=== PATIENT | male | born 1975 | race Caucasian/White ===

== ENCOUNTER 2017-10-27 12:54 | Emergency (ER) | payer MEDICARE, MEDICAID ==
[~2017-10-27] VITALS: Ht 180.3 cm; Wt 74.8 kg
[~2017-10-27 12:54] MED LIST: ALPR1T PO; NF-ESOM40C PO; OXYC-309 PO
--- OUTSIDE RECORDS SUMMARY | 2017-10-27 13:00 | XMS REPORT | Continuity of Care Document ---
Author Author [facility] Organization [facility] Address Unknown Phone Unavailable Allergies There is no data. Medications There is no data. Problems There is no data. Procedures There is no data. Results There is no data. Encounters ACCT No. Visit Date/Time Discharge Status Pt. Type Provider Facility Loc./Unit Complaint [id number] 09/01/2013 11:42:00 09/01/2013 23:59:59 CLS Outpatient
--- NOTE | 2017-10-27 13:51 | ED General ---
General Chief Complaint: Cough/Cold/Flu Symptoms Stated Complaint: ANDERS,CONGESTION,COUGH Nursing Triage Note: c/o intermittant headache/cough/chills/night sweats/earache x 2-3 weeks but has worsened last 3-4 days. Nursing Sepsis Screen: No Definite Risk Source of Information: Patient Exam Limitations: No Limitations History of Present Illness Date Seen by Provider: Oct 27, 2017 Time Seen by Provider: 13:22 Initial Comments This 42-year-old gentleman presents to emergency room with complaints of congestion, sore throat, joint aches, headaches, night sweats, and occasional productive cough. He has been having trouble with the congestion for 3 or 4 weeks. The congestion has been worse and the other symptoms have developed over the last for 5 days. He tried taking some Advil Cold and Sinus but that upset his stomach. He has been afebrile. Headache and sore throat have been improving. Allergies and Home Medications Allergies Coded Allergies: metoclopramide HCl (Unverified Allergy, 12/30/11) Uncoded Allergies: TYLELNOL WITH CODIENE (Allergy, 12/30/11) Home Medications Alprazolam 1 Mg Tablet, 1 TAB PO BID, (Reported) Amoxicillin 500 Mg Tablet, 1,000 MG PO TID Prescribed by: DANIEL HOLBROOK on 10/27/17 1414 Esomeprazole Mag Trihydrate 40 Mg Capsule.dr, 1 CAP PO DAILY, (Reported) Fluticasone Propionate 9.9 Ml [place].susp, 2 SPRAY NSEACH DAILY Prescribed by: DANIEL HOLBROOK on 10/27/17 1414 Oxycodone Hcl/Acetaminophen 1 Each Tablet, 1 EACH PO Q4H PRN, (Reported) Patient Home Medication List Home Medication List Reviewed: Yes Constitutional: see HPI, chills EENTM: see HPI Respiratory: see HPI Cardiovascular: no symptoms reported Gastrointestinal: see HPI Genitourinary: no symptoms reported Musculoskeletal: see HPI Skin: no symptoms reported Psychiatric/Neurological: See HPI Hematologic/Lymphatic: No Symptoms Reported Past Ojekfjl-Zflmmj-Wjveoy Hx Patient Social History Alcohol Use: Denies Use Recreational Drug Use: No Smoking Status: Former Smoker Recent Foreign Travel: No Contact w/Someone Who Travel: No Recent Infectious Disease Expo: No Surgeries History of Surgeries: Yes (dental, leg fracture) Surgeries: Appendectomy, Orthopedic Respiratory History of Respiratory Disorde: No Cardiovascular History of Cardiac Disorders: No Neurological History of Neurological Disord: Yes (meningitis in childhood) Genitourinary History of Genitourinary Disor: No Gastrointestinal History of Gastrointestinal Di: Yes Gastrointestinal Disorders: Gastroesophageal Reflux Musculoskeletal History of Musculoskeletal Dis: Yes (back) Musculoskeletal Disorders: Chronic Back Pain Endocrine History of Endocrine Disorders: No HEENT History of HEENT Disorders: No Cancer History of Cancer: No Psychosocial History of Psychiatric Problem: No Integumentary History of Skin or Integumenta: No Blood Transfusions History of Blood Disorders: No Physical Exam Vital Signs Vital Signs - First Documented 10/27/17 10/27/17 13:39 14:44 Temp 99.4 Pulse 78 Resp 16 B/P (MAP) 130/94 (106) Pulse Ox 99 O2 Delivery Room Air Capillary Refill : Less Than 3 Seconds General Appearance: No Apparent Distress, WD/WN HEENT: PERRL/EOMI, TMs Normal, Normal ENT Inspection, Other (posterior pharynx is hypervascular and mildly erythematous) Neck: Normal Inspection, Supple Respiratory: Lungs Clear, Normal Breath Sounds, No Accessory Muscle Use, No Respiratory Distress Cardiovascular: Regular Rate, Rhythm, No Edema, No Murmur Extremity: Normal Inspection Neurologic/Psychiatric: Alert, Oriented x3, No Motor/Sensory Deficits, Normal Mood/Affect, learning disabled teacher II-XII Norm as Tested Skin: Normal Color, Warm/Dry Progress/Results/Core Measures Suspected Sepsis Recent Fever Within 48 Hours: No Infection Criteria Present: Suspected New Infection New/Unexplained Altered Menta: No Sepsis Screen: No Definite Risk Sepsis Diagnosis: SIRS Temperature:99.4 Pulse: 78 Respiratory Rate: 16 Blood Pressure 130 /94 Mean: 106 Results/Orders Vital Signs/I&O Capillary Refill : Less Than 3 Seconds Blood Pressure Mean: 106 Progress Note : Progress Note Since he has had some sinus symptoms for more than 2 weeks with exacerbation of symptoms over the past few days, treatment for sinusitis was offered. Patient was given a printed prescription for amoxicillin. Departure Impression Impression: Primary Impression: Acute sinusitis Qualified Codes: J01.90 - Acute sinusitis, unspecified Disposition: 01 HOME, SELF-CARE Condition: Stable Departure-Patient Inst. Decision time for Depature: 14:05 Referrals: HARDEEP CRAIG MD (PCP/Family) Primary Care Physician Patient Instructions: Sinusitis in Adults Add. Discharge Instructions: If you elect to start antibiotics, please finish the entire 10 day course. Combined antibiotic use with use of Flonase (or generic form) 2 sprays in each side daily for at least 2 weeks. Return to care if symptoms worsen. All discharge instructions reviewed with patient and/or family. Voiced understanding. Scripts Fluticasone Propionate (Flonase Allergy Relief) 9.9 Ml [place].susp 2 SPRAY NSEACH DAILY, #1 SPRAY Prov: DANIEL MEDEL MD 10/27/17 Amoxicillin (Amoxicillin) 500 Mg Tablet 1000 MG PO TID, #60 TAB Prov: DANIEL MEDEL MD 10/27/17 DANIEL MEDEL MD Oct 27, 2017 13:51
[2017-10-27] MEDS ORDERED: FLUT9.9S NSEACH (14:14)
[2017-10-27] MEDS ORDERED: AMOX500T2 PO (14:14)
[2017-10-27 14:44] VITALS: BP 130/94
== END 2017-10-27 14:44 | disposition home or self-care (01) ==
LOC: EDUNIT# 12:54 → ER 12:56
DX: J01.90 Acute sinusitis, unspecified (principal); K21.9 Gastro-esophageal reflux disease without esophagitis; Z90.49 Acquired absence of other specified parts of digestive tract; Z88.5 Allergy status to narcotic agent; Z88.8 Allergy status to other drugs, medicaments and biological substances; Z88.6 Allergy status to analgesic agent; Z86.61 Personal history of infections of the central nervous system; Z87.81 Personal history of (healed) traumatic fracture; Z87.891 Personal history of nicotine dependence
CPT/HCPCS: 99282